=== PATIENT | female | born 1990 | race African-American/Black ===

== ENCOUNTER 2020-12-12 21:33 | Emergency (ER) | payer OTHER ==
[2020-12-12 22:23] LABS: BASOPHIL 0.3 % (0-2); HCT 31.2 % (37.0-47.0); HGB 9.3 g/dl (12.5-16.0); LYMPHOCYTE 35.4 % (15-48); MCHC 29.8 g/dL (32.0-36.0); MCV 70.4 fL (78.0-100.0); MONOCYTE 5.8 % (0-12); MPV 11.2 fL (6.0-9.5); NEUTROPHIL 56.2 % (41-80); NRBC 0; RBC 4.43 M/uL (4.20-5.40); RDW 18.7 % (11.5-14.0); WBC 9.7 K/uL (4.0-10.5)
[2020-12-12 22:43] LABS: ALBUMIN 3.5 g/dL (3.4-5.0); BILIRUBIN - TOTAL 0.2 mg/dL (0.2-1.0); BUN/CREAT RATIO (CALC) 17.1 RATIO; CREATININE 0.76 mg/dL (0.51-0.95); GLOBULIN (CALCULATION) 4.1 g/dL; PLT 346 K/uL (150-400); TOTAL PROTEIN 7.6 g/dL (6.4-8.2)
[2020-12-13 00:54] LABS: BILIRUBIN 1+ mg/dL (NEGATIVE); BLOOD 3+ Ery/uL (NEGATIVE); GLUCOSE (U) NORMAL (NORMAL); LEUKOCYTES TRACE Leu/uL (NEGATIVE); NITRITE POSITIVE (NEGATIVE); PROTEIN 1+ mg/dL (NEGATIVE); SPECIFIC GRAVITY >=1.030 (1.001-1.030); pH 5.5 (5.0-9.0)
[2020-12-13 00:57] LABS: CLARITY CLOUDY (CLEAR); COLOR RED (YELLOW)
[2020-12-13 01:02] LABS: BACTERIA TRACE; URINARY RBC TNTC
[2020-12-13] MEDS ORDERED: CARAFATE1 GM PO (02:45)
[2020-12-13] MEDS ORDERED: NORCO 5-325 TA1 EACH PO (02:45)
[2020-12-13] MEDS ORDERED: PROTONIX 40MG T40 MG PO (02:45)
[2020-12-13] MEDS ORDERED: CIPRO500 MG PO (02:55)
== END 2020-12-13 03:05 | disposition home or self-care (01) ==
LOC: FER 21:33
PROVIDERS: Emergency Medicine
DX: R07.89 Other chest pain (principal); K29.00 Acute gastritis without bleeding; Z88.0 Allergy status to penicillin; Z98.84 Bariatric surgery status; Z87.440 Personal history of urinary (tract) infections
CPT/HCPCS: 36415; 71045; 80053; 81001; 83690; 84484; 85025; 85379; 87339; 93005; J0696

== ENCOUNTER 2021-12-23 23:46 | Emergency (ER) | payer OTHER ==
[~2021-12-23 23:46] MED LIST: CARAFATE1 GM PO; CIPRO500 MG PO; NORCO 5-325 TA1 EACH PO; PROTONIX 40MG T40 MG PO
[2021-12-24 01:00] LABS: BILIRUBIN NEGATIVE (NEGATIVE); BLOOD 3+ Ery/uL (NEGATIVE); CLARITY CLEAR (CLEAR); COLOR YELLOW (YELLOW); GLUCOSE (U) NORMAL (NORMAL); LEUKOCYTES 2+ Leu/uL (NEGATIVE); NITRITE NEGATIVE (NEGATIVE); PROTEIN NEGATIVE (NEGATIVE)
[2021-12-24 01:04] LABS: BASOPHIL 0.3 % (0-2); EOSINOPHIL 1.9 % (0-5); HCT 27.2 % (37.0-47.0); HGB 8.9 g/dl (12.5-16.0); LYMPHOCYTE 24.6 % (15-48); MCHC 32.7 g/dL (32.0-36.0); MCV 82.4 fL (78.0-100.0); MONOCYTE 8.2 % (0-12); MPV 10.1 fL (6.0-9.5); NEUTROPHIL 64.7 % (41-80); NRBC 0; PLT 200 K/uL (150-400); RDW 17.8 % (11.5-14.0); WBC 7.8 K/uL (4.0-10.5)
[2021-12-24] MEDS ORDERED: ZOVIRAX200 MG PO (01:08)
[2021-12-24] MEDS ORDERED: NORCO 5-325 TA1 EACH PO (01:08)
[2021-12-24 01:13] LABS: BACTERIA TRACE; MUCOUS TRACE
[2021-12-24 01:23] LABS: BUN/CREAT RATIO (CALC) 6.2 RATIO; CREATININE 0.65 mg/dL (0.51-0.95); POTASSIUM 3.7 mmol/L (3.5-5.1)
[2021-12-25 22:09] LABS: CHLAMYDIA TRACHOMATIS, NAA Negative (Negative); NEISSERIA GONORRHOEAE, NAA Negative (Negative)
== END 2021-12-24 02:45 | disposition home or self-care (01) ==
LOC: FER 23:46
PROVIDERS: Internal Medicine
DX: O99.891 Other specified diseases and conditions complicating pregnancy (principal); O99.012 Anemia complicating pregnancy, second trimester; N89.8 Other specified noninflammatory disorders of vagina; R10.2 Pelvic and perineal pain; Z3A.26 26 weeks gestation of pregnancy; Z28.310 Unvaccinated for COVID-19; Z88.0 Allergy status to penicillin
CPT/HCPCS: 36415; 80048; 81001; 85025; 87070; 87077; 87088; 87205; 87491; 87591; 99283; J0696